=== PATIENT | male | born 1965 | race Hispanic/Latino ===

== ENCOUNTER 2019-09-24 02:54 | Inpatient (IN) | payer MEDICARE, OTHER ==
[2019-09-24] MEDS ORDERED: Acetaminophen 650 MG Suppository PR PRN (04:30)
[2019-09-24] MEDS ORDERED: Ventilator Sedation Protocol 1 EACH FS SCH (04:30)
[2019-09-24] MEDS ORDERED: Ondansetron PF 4 MG/2 ML Vial IVP PRN (04:30)
[2019-09-24] MEDS ORDERED: CCU Electrolyte Replacement 1 EACH IVPB SCH (04:30)
[2019-09-24] MEDS ORDERED: Propofol BOLUS 1,000 MG/100 ML VIAL IV PRN (04:38)
[2019-09-24] MEDS ORDERED: Fentanyl BOLUS 250 ML IVPB PRN (04:38)
[2019-09-24] MEDS ORDERED: DISCONTINUE PREVIOUS NARCOTIC PAIN MEDICATIONS AND BENZODIAZEPINES FS SCH (04:38)
[2019-09-24] MEDS ORDERED: Propofol 1,000 MG/100 ML VIAL IV PRN (04:38)
[2019-09-24] MEDS ORDERED: PHOS-NAK 1 PKT PACK PO PRN ×2 (04:38)
[2019-09-24] MEDS ORDERED: Potassium Chloride 40 MEQ in Premix Bag 1 BAG IVPB PRN (04:38)
[2019-09-24] MEDS ORDERED: Magnesium Oxide 400 MG TAB PO PRN ×2 (04:38)
[2019-09-24] MEDS ORDERED: Potassium Chloride 20 MEQ TAB PO PRN (04:38)
[2019-09-24] MEDS ORDERED: Magnesium 2 GM/50 ML 2 GM in Premix Bag 1 BAG IVPB PRN (04:38)
[2019-09-24] MEDS ORDERED: Potassium Chloride 40 MEQ in Sodium Chloride 0.9% 250 ML 250 ML IVPB PRN (04:38)
[2019-09-24] MEDS ORDERED: CCU ELECTROLYTE REPLACEMENT PROTOCOL FS PRN (04:38)
[2019-09-24] MEDS ORDERED: Potassium Phosphate 15 MMOL in Sodium Chloride 0.9% 250 ML 250 ML IV PRN (04:38)
[2019-09-24] MEDS ORDERED: Potassium Phosphate 12 MMOL in Sodium Chloride 0.9% 250 ML 250 ML IV PRN (04:38)
[2019-09-24] MEDS ORDERED: fentaNYL Citrate/PF 2,000 MCG in Sodium Chloride 0.9% 60 ML IV SCH (04:38)
[2019-09-24] MEDS ORDERED: Potassium Phosphate 9 MMOL in Sodium Chloride 0.9% 100 ML IVPB PRN (04:38)
[2019-09-24] MEDS ORDERED: Lorazepam 2 MG/ML VIAL SLOW IVP PRN (04:38)
[2019-09-24] MEDS ORDERED: Morphine 2 MG/ML SYRINGE SLOW IVP PRN (04:38)
[2019-09-24 04:39] VITALS: BMI 30.5
[2019-09-24] MEDS ORDERED: Sodium Chloride 0.9% 1,000 ML IV SCH (04:45)
--- NOTE | 2019-09-24 05:07 | PDOC.EVN ---
Event Note - Event Note Event Note: H & P dictated [id number]
--- NOTE | 2019-09-24 05:51 | HP ---
CHIEF COMPLAINT: Unresponsiveness. HISTORY OF PRESENT ILLNESS: Mr. Lainez is a 54-year-old male with past medical history of hypertension, myocardial infarction, pneumonia, ?AL, was brought to [facility] Emergency Room after he was found unresponsive lying outside an apartment complex, was described that he was ___sonorous not responding. When he arrived to the emergency room, he was on non-rebreather, 100%, the patient has to be intubated by the ER physician. Workup in the emergency room, urine drug screen is positive for benzodiazepines and opiates. CT of the brain, no acute finding. ABG showed acute hypercapnic respiratory failure with a pH of 7.19, PaCO2 of 65. The patient transferred to our medical facility for critical care management and ICU admission. PAST MEDICAL HISTORY: As per records; 1. Hypertension. 2. GERD. 3. Pneumonia. 4. AL? PAST SURGICAL HISTORY: 1. Back surgery. 2. Right shoulder surgery. SOCIAL HISTORY: Unknown. FAMILY HISTORY: Unknown. ALLERGIES: NO KNOWN ALLERGIES. HOME MEDICATIONS: See home medication reconciliation form for updated medications. REVIEW OF SYSTEMS: Unable to obtain. The patient currently is intubated and mechanically ventilated. PHYSICAL EXAMINATION: GENERAL: The patient is intubated and sedated. VITAL SIGNS: Blood pressure 110/69, temperature 97.9, pulse is 78, respiratory rate is 16. HEAD AND NECK: Normocephalic. NECK: Supple. CHEST: Fair bilateral air entry. HEART: S1, S2, regular. ABDOMEN: Soft, nontender. Bowel sounds present. NEURO: Intubated, sedated, unable to assess. PSYCH: Intubated, sedated, unable to assess. GENITOURINARY: No suprapubic tenderness. No flank tenderness. MUSCULOSKELETAL: No apparent joint deformities. EXTREMITIES: No clubbing or cyanosis. LABORATORY DATA: ABG; pH 7.19, PaCO2 of 65. BUN is 37, creatinine 1.6. WBCs 9.7, hemoglobin 11.4. CT of the brain, no acute finding. ASSESSMENT: 1. Acute hypercapnic respiratory failure. 2. Acute encephalopathy, metabolic. 3. Opiates overdose? Urine drug screen positive for opiates. 4. Benzodiazepine in the urine. 5. Acute kidney injury. 6. Hypertension. PLAN: 1. Admit to ICU. 2. Continue full ventilator support. 3. Consult Pulmonary/motor adjuster for critical care management. 4. Keep the patient n.p.o. for now. 5. IV fluids. 6. Monitor kidney function and urine output. 7. Reconcile home medications. 8. DVT prophylaxis as appropriate. 9. GI prophylaxis. 10. Expected length of stay, 2 midnights or more. Case was discussed with BANK CONSULTANT. Job ID: [id number] MTDD
[2019-09-24] MEDS: Enoxaparin Sodium 40 MG/0.4 ML SYRINGE SC SCH (07:17)
[2019-09-24] MEDS: Famotidine/PF 20 mg/2ml Vial SLOW IVP SCH ×2 (07:18→19:33)
[2019-09-24 07:37] LABS: Actual Bicarbonate (HCO3a) 27.4 mEq/L (22-28); Base Excess (BEa) 0.4 mEq/L (-2.0 to +3.0); Calcium, Ionized 1.18 mmol/L (1.12-1.30); Carboxyhemoglobin (COHb) 2.7 gm% (0.0-3.0); Hemoglobin (Hb) 11.4 g/dL (14.0-18.0); O2 Tension (PaO2), arterial 62.3 mmHg (80.0-100.0); Potassium - ABG Lab 4.19 mmol/L (3.70-5.30); pH, Arterial 7.31 (7.35-7.45)
[2019-09-24 07:39] LABS: Puncture Site RB
[2019-09-24 08:44] LABS: #Basophils 0.1 thou/uL (0.0-0.2); #Eosinphils 0.2 thou/uL (0.0-0.7); #Lymphocytes 2.1 thou/uL (1.20-3.40); #Monocytes 1.3 thou/uL (0.11-0.59); #Neutrophils 6.8 thou/uL (1.40-6.50); %Basophils 0.7 % (0.0-1.0); %Eosinophils 2.1 % (0.0-10.0); %Lymphocytes 20.3 % (21.0-51.0); %Monocytes 12.7 % (0.0-10.0); %Neutrophils 64.2 % (42.0-75.0); Hemoglobin 11.4 g/dL (14.0-18.0); Mean Corpuscular HGB CONC 30.4 g/dL (32.0-36.0); Mean Corpuscular Hemoglobin 30.2 pg (27.0-31.0); Mean Corpuscular Volume 99.2 fL (78.0-98.0); Platelet Count 278 thou/uL (130-400); RBC Distribution Width 13.6 % (11.5-14.5); Red Blood Cell (RBC) Count 3.77 mill/uL (4.70-6.10); White Blood Cell (WBC) Count 10.6 thou/uL (4.8-10.8)
[2019-09-24 09:01] LABS: Anion Gap 12 mmol/L (10-20); BUN (Urea Nitrogen) 28 mg/dL (8.4-25.7); Calc. Creatinine Clearance 118 mL/min (70-130); Calcium 8.8 mg/dL (7.8-10.44); Carbon Dioxide 28 mmol/L (22-29); Chloride 101 mmol/L (98-107); Estimated GFR-MDRD 73; Glucose 100 mg/dL (70-105); Potassium 4.3 mmol/L (3.5-5.1); Sodium 137 mmol/L (136-145)
--- NOTE | 2019-09-24 09:09 | RAD ---
PORTABLE CHEST: HISTORY: Respiratory distress. COMPARISON: 04/06/2019 study. FINDINGS: Endotracheal and NG tubes are in satisfactory position. Heart size appears enlarged. There are pare nchymal changes in the retrocardiac region consistent with atelectasis, scar, or infiltrate. There a re some pleural changes in the left base which may be chronic in nature. IMPRESSION: 1. Endotracheal and NG tubes in satisfactory position. 2. Increased retrocardiac density probably related to atelectasis, possibly infiltrate or scarring. POS: AH
[2019-09-24] MEDS ORDERED: DC Sedation Protocol FS ONE (09:50)
--- NOTE | 2019-09-24 10:15 | CON ---
DATE OF CONSULTATION: HISTORY OF PRESENT ILLNESS: Zachariah Lainez is a 54-year-old obese gentleman, who apparently was found down and brought to the ER at [facility], where he was probably intubated. His PO2 was 104, pCO2 was 65, pH 7.19. There was some concern he took an overdose. His urine screen is positive for opiates and benzos. He was given Narcan in the ER. The CT of head was done in the ER, which is unremarkable. Additional lab was unrevealing except for creatinine 1.6. He is now at [facility] in [place], intubated in the vent. He is on sedation, which I am going to withhold for a while. As soon as this was done after 5 minutes, he is a little bit more responsive. he has no lab done this morning at this hospital, they all being instituted. PAST MEDICAL HISTORY: He has a past medical history of hypertension. PREVIOUS SURGERIES: As outlined and has included a previous neck fusion surgery done now, shoulder surgery done. All history obtained from medical records in [place]. MEDICATIONS: List of medicine at this time, unknown. SOCIAL HISTORY: History of alcohol, tobacco abuse; unknown, though his drug screen was negative with above-mentioned problem. PHYSICAL EXAMINATION: VITAL SIGNS: Pulse is 98, blood pressure 106/58, saturations 100%, respirations 11. GENERAL: He is sedated, but lethargic and arousable. CHEST: Decreased breath sounds. No wheezing. CARDIAC: Normal S1 and S2. No gallops. ABDOMEN: No evidence of masses. IMPRESSION: 1. Respiratory failure, presumed overdose on opiates and benzos. 2. Hypertension. 3. Renal failure, diabetes, previous back surgery. PLAN: We will try to get additional information from family as they arrive. Stop sedation. Continue hydration. Supportive care, PT. We will follow. This is a note of 45-minute critical care time. Job ID: [id number]
[2019-09-24] MEDS: Acetaminophen 325 MG TAB PO PRN ×2 (16:08→22:11)
[2019-09-25 06:28] LABS: Band 5 % (5-11); Eosinophils 1 % (0-10); Hemoglobin 12.9 g/dL (14.0-18.0); Lymphocytes 16 % (21-51); MDiff Complete? YES; Mean Corpuscular HGB CONC 32.4 g/dL (32.0-36.0); Mean Corpuscular Hemoglobin 30.8 pg (27.0-31.0); Mean Corpuscular Volume 94.9 fL (78.0-98.0); Mean Platelet Volume 7.9 fL (7.4-10.4); Monocytes 6 % (0-10); Neutrophil 72 % (42-75); Platelet Count 327 thou/uL (130-400); Platelet Morphology Comment Appears Adequate; RBC Distribution Width 13.5 % (11.5-14.5); Red Blood Cell (RBC) Count 4.19 mill/uL (4.70-6.10); White Blood Cell (WBC) Count 9.8 thou/uL (4.8-10.8)
[2019-09-25 06:38] LABS: ALT (SGPT) 13 U/L (8-55); AST (SGOT) 16 U/L (5-34); Alkaline Phosphatase 97 U/L (40-110); Anion Gap 14 mmol/L (10-20); BUN (Urea Nitrogen) 8 mg/dL (8.4-25.7); Bilirubin, Total 0.5 mg/dL (0.2-1.2); Calc. Creatinine Clearance 170 mL/min (70-130); Calcium 9.5 mg/dL (7.8-10.44); Carbon Dioxide 30 mmol/L (22-29); Chloride 101 mmol/L (98-107); Estimated GFR-MDRD Greater than 90; Globulin 3.3 g/dL (2.4-3.5); Glucose 107 mg/dL (70-105); Potassium 3.3 mmol/L (3.5-5.1); Protein, Total 7.3 g/dL (6.0-8.3); Sodium 142 mmol/L (136-145)
[2019-09-25] MEDS: Enoxaparin Sodium 40 MG/0.4 ML SYRINGE SC SCH (09:12)
[2019-09-25] MEDS: Famotidine/PF 20 mg/2ml Vial SLOW IVP SCH (09:12)
[2019-09-25] MEDS: Acetaminophen 325 MG TAB PO PRN (09:33)
--- NOTE | 2019-09-25 09:34 | PRG ---
DATE OF SERVICE: 09/25/2019 SUBJECTIVE: This morning, he is awake, alert, and responsive. He was extubated yesterday. He had probably unintentional presumed overdose on pain medicine. OBJECTIVE: VITAL SIGNS: Temperature 98, pulse 98, respirations 16, saturations 90% on room air, blood pressure 135/64. CHEST: No wheezing, crackles. CARDIAC: Normal S1, S2. No gallops. ABDOMEN: No masses. LABORATORY DATA: His labs are unremarkable. ASSESSMENT AND PLAN: Chronic pain. Respiratory failure improved. Pulmonary slaughter, once he is able to ambulate, he can be discharged. I told him to discuss with his primary care physician the need to do a sleep study. Job ID: [id number]
[2019-09-25] MEDS ORDERED: Potassium Chloride 20 MEQ TAB PO SCH (12:30)
[2019-09-25 15:42] VITALS: BP 177/82; TEMP 98.9
--- NOTE | 2019-09-25 20:00 | DIS ---
DATE OF ADMISSION: 09/24/2019 DATE OF DISCHARGE: 09/25/2019 DISCHARGE DIAGNOSES: Are of the followin. Acute respiratory failure secondary to hypercapnia. 2. Smoking history. 3. Depression. 4. Hypertension. 5. Acute kidney injury, resolved. HOSPITAL COURSE: The patient is a 54-year-old male, who initially was found on the ground snoring. At this time, EMS was called. The patient at that time was given some Narcan, was brought into the ER. Per the ER notes he was withdrawing to pain. However, given his hypercapnia, he was intubated in the ER. The patient then woke up and was extubated the following day by Pulmonary. He has been doing well on room air. The patient's UDS was positive for benzos and opioids. The patient states that he has not been taking more than what he is supposed to be. However, the family states that he has not been sleeping very much and also snores and stops breathing when he sleeps. I have recommended, so has the candy feeder for the patient to get a sleep study. We did ambulate the patient. The patient did not drop his saturations below 90% to 93%. The patient continues to smoke a pack a day. I have advised him against it. His BNP was normal. His troponin was normal. He did have some acute kidney injury, which resolved. The patient will be discharged home, he will follow up with primary and also will get a sleep study and follow up with a candy feeder. MEDICATIONS: 1. Pepcid 20 mg twice daily. 2. Cymbalta 60 mg daily. 3. Gabapentin 800 mg t.i.d. 4. Metoprolol 25 mg daily. 5. Lisinopril/hydrochlorothiazide 02/03.5 one p.o. daily. 6. Spiriva 18 mcg one puff daily. This is the new medication added I have added to his list. PHYSICAL EXAMINATION: VITAL SIGNS: Temperature 99.3, 92, 16, 100% on room air, 155/68. GENERAL: He is awake, alert, and oriented x3. Does not appear in distress. CV: S1, S2 present. No murmurs, rubs, or gallops. FOLLOWUP: The patient wants to be discharged home. He will follow up with his primary and also will get a sleep study as an outpatient. I have also educated him against smoking cessation. Job ID: [id number]
[2019-09-25] MEDS ORDERED: Famotidine 20 MG TAB PO SCH (21:00)
[2019-09-26] MEDS ORDERED: DULoxetine 60 MG CAP PO SCH (09:00)
--- NOTE | 2019-09-26 11:55 | PQF ---
FIGUEROA GARCIA SR TANNER ROSARIO [id number] [id number] CLINICAL DOCUMENTATION IMPROVEMENT CLARIFICATION FORM: ICD-10 Updated PLEASE DO AN ADDENDUM TO THE PROGRESS NOTE WITH ANY DOCUMENTATION UPDATES OR ADDITIONS AND CARRY THROUGH TO DC SUMMARY. THANK YOU. DATE: 09/26/2019 ATTN: Dr. Rosario Please exercise your independent, professional judgment in responding to the clarification form. Clinical indicators are provided on the bottom of this form for your review Please check appropriate box(s): [ ] Acute Hypercapnic Respiratory Failure due to adverse effect of opiates and benzodiazepines, correct dose [ ] Acute Hypercapnic Respiratory Failure due to poisoning from opiates and benzodiazepines, overdose [ ] Acute Hypercapnic Respiratory Failure not related to opiate and benzodiazepine use [ x] Other diagnosis acute hypercapnic resp failure __possible due to underlying lung disease vs medication____ [ ] Unable to determine In addition, please specify: Present on Admission (POA): [x ] Yes [ ] No [ ] Unable to determine For continuity of documentation, please document condition throughout progress notes and discharge summary. Thank You. CLINICAL INDICATORS - SIGNS / SYMPTOMS / LABS / RESULTS AND LOCATION IN EMR * [facility] * Found unresponsive lying outside an apartment complex, was described that he was sonorous not responding. * Acute hypercapnic respiratory failure * Acute encephalopathy, metabolic * Opiates overdose? Urine drug screen positive for opiates. Benzodiazepine in the urine. * Consultation 09/23 ([facility]): Respiratory failure, presumed overdose on opiates and benzos. * PN 09/24 ([facility]): He had probably unintentional presumed overdose on pain medication. * DC Summary 09/24 ([facility]): * The patient's UDS was positive for benzos and opioids. The patient states that he has not been taking more than what he is supposed to be. * However, the family states that he has not been sleeping very much and also snores and stops breathing when he sleeps. * I have recommended, so has the copy reader for the patient to get a sleep study. RISK FACTORS / RESULTS AND LOCATION IN EMR * DC Summary 09/24 ([facility]): * Acute respiratory failure secondary to hypercapnia. * The patient's UDS was positive for benzos and opioids. The patient states that he has not been taking more than what he is supposed to be. TREATMENTS / RESULTS AND LOCATION IN EMR * H&P 09/23 ([facility]): Intubated by the ER physician ... UDS ... CT of the brain ... ABG ... Admit to ICU ... IV fluids ... Full ventilator suppport * Consult Pulmonology 09/23 * Chest Xray ([facility]) 09/23 * DC Summary 09/24 ([facility]ene): Sleep study and follow up with copy reader ... Spiriva ...This is the new medication added Thank you! Leonor (This form is maintained as a part of the permanent medical record) 2015 [employer], [employer]. All Rights Reserved Leonor Torres RN, [email or web address] [email or web address] cell phone: [facility] CENTERJorge
== END 2019-09-25 17:10 | disposition home or self-care (01) | DRG 208 ==
LOC: CCU 04:19 → ONC 15:48
PROVIDERS: ADMIT Internal Medicine; ATTEND Internal Medicine
PROC: 0BH17EZ Insertion of Endotracheal Airway into Trachea, Via Natural or Artificial Opening (ICD-10-PCS; principal; 2019-09-24)
PROC: 5A1935Z Respiratory Ventilation, Less than 24 Consecutive Hours (ICD-10-PCS; 2019-09-24)
DX: J96.02 Acute respiratory failure with hypercapnia (principal); G93.41 Metabolic encephalopathy; N17.9 Acute kidney failure, unspecified; I10 Essential (primary) hypertension; K21.9 Gastro-esophageal reflux disease without esophagitis; E11.9 Type 2 diabetes mellitus without complications; G89.29 Other chronic pain; F32.9 Major depressive disorder, single episode, unspecified; T50.905A Adverse effect of unspecified drugs, medicaments and biological substances, initial encounter; I25.2 Old myocardial infarction; Z87.01 Personal history of pneumonia (recurrent); Z87.891 Personal history of nicotine dependence
CPT/HCPCS: 36415; 71045; 80048; 80053; 82805; 85007; 85025; 85027; 94002; J1650; J3010; J3490; S0028